=== PATIENT | female | born 1995 | race African-American/Black ===

== ENCOUNTER 2017-12-09 02:51 | Emergency (ER) | payer OTHER ==
[~2017-12-09] VITALS: Ht 162.6 cm; Wt 83.1 kg
[~2017-12-09 02:51] MED LIST: NAPROSYN500 MG PO
[2017-12-09] MEDS ORDERED: RHINOCORT ALL8.43 ML BOTH NARES (07:52)
[2017-12-09] MEDS ORDERED: GUAIFENESIN600 M1 PO (07:52)
[2017-12-09 08:18] VITALS: BP 110/87
== END 2017-12-09 08:20 | disposition home or self-care (01) ==
LOC: EME 02:51
DX: O99.511 Diseases of the respiratory system complicating pregnancy, first trimester (principal); J20.8 Acute bronchitis due to other specified organisms; J01.90 Acute sinusitis, unspecified; Z3A.01 Less than 8 weeks gestation of pregnancy

== ENCOUNTER 2018-06-17 14:08 | Outpatient (CLI) | payer OTHER ==
[~2018-06-17] VITALS: Ht 162.6 cm; Wt 85.0 kg
[~2018-06-17 14:08] MED LIST changes: +GUAIFENESIN600 M1 PO; +RHINOCORT ALL8.43 ML BOTH NARES
[2018-06-17 14:22] VITALS: BP 130/72
[2018-06-17 19:32] LABS: CANDIDA DNA PROBE NEGATIVE; GARDNERELLA DNA PROBE NEGATIVE; TRICHOMONAS DNA PROBE NEGATIVE
== END 2018-06-17 16:00 | disposition home or self-care (01) ==
LOC: LDRP-OP → 2WEST 14:09 → LDRP-OP 09-10 08:27
PROVIDERS: Advanced Practice Midwife
DX: O26.893 Other specified pregnancy related conditions, third trimester (principal); Z3A.32 32 weeks gestation of pregnancy
CPT/HCPCS: 59025; 87480; 87510; 87660; G0378